=== PATIENT | female | born 1990 | race Caucasian/White ===

== ENCOUNTER 2018-04-21 18:23 | Emergency (ER) | payer MEDICAID ==
[~2018-04-21] VITALS: Ht 162.6 cm; Wt 107.1 kg
[~2018-04-21 18:23] MED LIST: DOCU-131 PO; FERR325T18 PO; IBUP-1223 PO; OXYC-302 PO
[2018-04-21 18:56] LABS: CULTURE INDICATED? YES; MICROSCOPIC INDICATED
[2018-04-21 19:18] LABS: BASOPHILS # (AUTO) 0.07 x10^3/uL (0-0.1); BASOPHILS % (AUTO) 1 % (0-1); EOSINOPHILS # (AUTO) 0.16 x10^3/uL (0-0.4); EOSINOPHILS % (AUTO) 2 % (1-7); LYMPHOCYTES # (AUTO) 1.82 x10^3/uL (1-3.4); LYMPHOCYTES % (AUTO) 24 % (22-44); MD NO; MEAN CORPUSCULAR HEMOGLOBIN 28.8 pg (27.0-34.8); MEAN CORPUSCULAR HGB CONC 33.6 g/dL (32.4-35.8); MEAN CORPUSCULAR VOLUME 85.7 fL (80-100); MEAN PLATELET VOLUME 11.3 fL (7.4-10.4); MONOCYTES # (AUTO) 0.44 x10^3/uL (0.2-0.8); MONOCYTES % (AUTO) 6 % (2-9); NEUTROPHILS # (AUTO) 5.26 x10^3/uL (1.8-6.8); NEUTROPHILS % (AUTO) 68 % (42-75); PLATELET COUNT 274 x10^3/uL (130-400); RED CELL DISTRIBUTION WIDTH 16.5 % (9.6-15.2)
[2018-04-21 19:25] LABS: ALANINE AMINOTRANSFERASE 35 U/L (12-78); ALBUMIN 3.4 g/dL (3.4-5.0); ANION GAP 8 mmol/L (5-15); CALCIUM 8.8 mg/dL (8.5-10.1); CHLORIDE 109 mmol/L (98-107); CREATININE 0.71 mg/dL (0.55-1.02)
[2018-04-21 19:30] LABS: ALKALINE PHOSPHATASE 73 U/L (45-117); BILIRUBIN,TOTAL 0.7 mg/dL (0.2-1.0); TOTAL PROTEIN 7.3 g/dL (6.4-8.2)
[2018-04-21 19:43] VITALS: BP 99/55
[2018-04-21] MEDS ORDERED: FLUCONAZOLE 100 MG TABLET PO ONE (20:00)
[2018-04-21] MEDS ORDERED: FLUCONAZOLE 100 MG TABLET ONE (20:12)
== END 2018-04-21 20:15 | disposition home or self-care (01) ==
LOC: ED 20:11
DX: N30.00 Acute cystitis without hematuria (principal); B37.9 Candidiasis, unspecified
CPT/HCPCS: 36415; 80053; 81001; 83690; 84703; 85025; 87086; 99284

== ENCOUNTER 2019-08-14 14:35 | Emergency (ER) | payer MEDICAID ==
[~2019-08-14] VITALS: Ht 170.2 cm; Wt 55.0 kg
--- NOTE | 2019-08-14 15:15 | NUR ---
ESTEVAN WAYNE DC FROM [facility] ON A LEGAL HOLD THEY REPORT PT CLAIMS SI AND UNABLE TO CARE FOR SELF CLOTHING REMOVED AND SECURED PT COOPERATIVE WITH FLIGHT OF IDEAS DENIES SI ON FIRST INTERVIEW ERP AND SW TO BS SITTER IN THE [place] WATCHING THE PT
[2019-08-14 15:56] LABS: MICROSCOPIC INDICATED
[2019-08-14 15:57] LABS: CULTURE INDICATED? YES
[2019-08-14 16:08] LABS: AMPHETAMINE SCREEN, URINE Positive (Negative); BARBITURATE SCREEN, URINE Negative (Negative); BENZODIAZEPINE SCREEN, URINE Negative (Negative); CANNABINOID SCREEN, URINE Negative (Negative); COCAINE SCREEN, URINE Negative (Negative); METHADONE SCREEN, URINE Negative (Negative); OPIATE SCREEN, URINE Negative (Negative)
[2019-08-14 16:29] LABS: BASOPHILS # (AUTO) 0.09 x10^3/uL (0-0.1); BASOPHILS % (AUTO) 1 % (0-1); EOSINOPHILS # (AUTO) 0.06 x10^3/uL (0-0.4); EOSINOPHILS % (AUTO) 1 % (1-7); LYMPHOCYTES # (AUTO) 2.11 x10^3/uL (1-3.4); LYMPHOCYTES % (AUTO) 35 % (22-44); MD NO; MEAN CORPUSCULAR HEMOGLOBIN 30.8 pg (27.0-34.8); MEAN CORPUSCULAR HGB CONC 32.9 g/dL (32.4-35.8); MEAN CORPUSCULAR VOLUME 93.8 fL (80-100); MONOCYTES # (AUTO) 0.35 x10^3/uL (0.2-0.8); MONOCYTES % (AUTO) 6 % (2-9); NEUTROPHILS # (AUTO) 3.51 x10^3/uL (1.8-6.8); NEUTROPHILS % (AUTO) 57 % (42-75); PLATELET COUNT 221 x10^3/uL (130-400); RED BLOOD COUNT 4.16 x10^6/uL (3.82-5.3); RED CELL DISTRIBUTION WIDTH 13.8 % (9.6-15.2)
[2019-08-14 16:35] LABS: ALANINE AMINOTRANSFERASE 22 U/L (12-78); ALBUMIN 3.4 g/dL (3.4-5.0); ANION GAP 6 mmol/L (5-15); CALCIUM 8.2 mg/dL (8.5-10.1); CHLORIDE 106 mmol/L (98-107)
[2019-08-14 16:36] LABS: SALICYLATE LEVEL < 1.7 mg/dL (2.8-20.0)
[2019-08-14 16:40] LABS: ALKALINE PHOSPHATASE 64 U/L (45-117); BILIRUBIN,TOTAL 0.7 mg/dL (0.2-1.0); TOTAL PROTEIN 6.9 g/dL (6.4-8.2)
[2019-08-14] MEDS ORDERED: FOSFOMYCIN 3 GM PACKET PO ONE (17:00)
--- NOTE | 2019-08-14 17:32 | NUR ---
JJ TO THE BS FOR EVAL
--- NOTE | 2019-08-14 17:35 | NUR ---
PT TO REMAIN ON A HOLD
--- NOTE | 2019-08-14 18:49 | NUR ---
Presented to [facility], waiting to see if they will accept.
--- NOTE | 2019-08-14 18:53 | NUR ---
PACKET FAXED TO [facility], [facility], [facility], AND [facility]
--- NOTE | 2019-08-14 19:50 | NUR ---
PT RESTING IN BED WATCHING TV, PT HAS SITTER AT PT DOOR, SI SECURE ROOM AND SI PRECAUTIONS ARE IN PLACE.
[2019-08-14] MEDS ORDERED: FOSFOMYCIN 3 GM PACKET ONE (20:32)
--- NOTE | 2019-08-14 23:56 | NUR ---
PT SLEEPING IN BED, PT HAS SITTER AT PT DOOR, SI SECURE ROOM AND SI PRECAUTIONS ARE IN PLACE.
--- NOTE | 2019-08-15 02:55 | NUR ---
PT SLEEPING IN BED WITH TV ON, PT HAS SITTER AT PT DOOR, SI SECURE ROOM AND SI PRECAUTIONS ARE IN PLACE. PT DENIED ANY NEEDS AT THIS TIME.
--- NOTE | 2019-08-15 03:57 | NUR ---
PT SLEEPING, PT HAS SITTER AT PT DOOR, SI SECURE ROOM AND SI PRECAUTIONS ARE IN PLACE. PT DENIED ANY NEEDS AT THIS TIME.
--- NOTE | 2019-08-15 06:01 | NUR ---
PT SLEEPING, PT HAS SITTER AT PT DOOR, SI SECURE ROOM AND SI PRECAUTIONS ARE IN PLACE. PT DENIED ANY NEEDS AT THIS TIME.
--- NOTE | 2019-08-15 06:04 | NUR ---
Accepted by Dr. Redding in [facility]
[2019-08-15 06:09] VITALS: BP 111/64
--- NOTE | 2019-08-15 06:34 | NUR ---
RN GAVE REPORT TO NATALY FRANCIS VIA PHONE.
--- NOTE | 2019-08-15 06:59 | NUR ---
REPORT RECEIVED FROM DIANE FRANCIS.
== END 2019-08-15 07:10 | disposition other institution (70) ==
LOC: ED 17:22
DX: F31.2 Bipolar disorder, current episode manic severe with psychotic features (principal); F15.250 Other stimulant dependence with stimulant-induced psychotic disorder with delusions; N30.00 Acute cystitis without hematuria; F17.200 Nicotine dependence, unspecified, uncomplicated; Z72.9 Problem related to lifestyle, unspecified; Z63.8 Other specified problems related to primary support group
CPT/HCPCS: 36415; 80053; 80307; 81001; 84703; 85025; 87077; 87086; 87186; 99284

== ENCOUNTER 2019-08-15 06:23 | Inpatient (IN) | payer MEDICAID ==
[~2019-08-15] VITALS: Ht 162.6 cm; Wt 78.4 kg
[2019-08-15] MEDS ORDERED: ACETAMINOPHEN 325 MG TABLET PO PRN (06:30)
[2019-08-15] MEDS ORDERED: POLYETHYLENE GLYCOL 17 GM PACKET PO PRN (06:30)
[2019-08-15] MEDS ORDERED: ONDANSETRON ODT 4 MG PO PRN (06:30)
[2019-08-15] MEDS ORDERED: DOCUSATE 100 MG CAPSULE PO PRN (06:30)
[2019-08-15] MEDS ORDERED: BISACODYL 10 MG SUPP PR PRN (06:30)
[2019-08-15] MEDS ORDERED: PLEASE ENTER HEIGHT AND WEIGHT MC SCH (07:30)
[2019-08-15 08:13] LABS: CULTURE INDICATED? YES; MICROSCOPIC INDICATED
[2019-08-15 08:30] VITALS: BP 105/65
[2019-08-15 09:35] LABS: BASOPHILS # (AUTO) 0.06 x10^3/uL (0-0.1); BASOPHILS % (AUTO) 1 % (0-1); EOSINOPHILS # (AUTO) 0.06 x10^3/uL (0-0.4); EOSINOPHILS % (AUTO) 1 % (1-7); LYMPHOCYTES # (AUTO) 1.76 x10^3/uL (1-3.4); LYMPHOCYTES % (AUTO) 27 % (22-44); MD NO; MEAN CORPUSCULAR HEMOGLOBIN 29.7 pg (27.0-34.8); MEAN PLATELET VOLUME 10.5 fL (7.4-10.4); MONOCYTES # (AUTO) 0.27 x10^3/uL (0.2-0.8); MONOCYTES % (AUTO) 4 % (2-9); NEUTROPHILS # (AUTO) 4.34 x10^3/uL (1.8-6.8); NEUTROPHILS % (AUTO) 67 % (42-75); PLATELET COUNT 241 x10^3/uL (130-400); RED BLOOD COUNT 4.42 x10^6/uL (3.82-5.3); RED CELL DISTRIBUTION WIDTH 13.9 % (9.6-15.2)
[2019-08-15 09:43] VITALS: BP 105/65
[2019-08-15 09:48] LABS: ALANINE AMINOTRANSFERASE 23 U/L (12-78); ALBUMIN 3.4 g/dL (3.4-5.0); ANION GAP 5 mmol/L (5-15); CALCIUM 8.5 mg/dL (8.5-10.1); CHLORIDE 108 mmol/L (98-107)
[2019-08-15 10:12] LABS: ALKALINE PHOSPHATASE 66 U/L (45-117); BILIRUBIN,TOTAL 0.5 mg/dL (0.2-1.0); CHOL/HDL RATIO 2.4; CHOLESTEROL, TOTAL 135 mg/dL (140-239); CREATININE 0.68 mg/dL (0.55-1.02); FREE T4 (FREE THYROXINE) 1.33 ng/dL (0.76-1.46); HDL CHOL % 41 % (28-40); HDL CHOLESTEROL (DIRECT) 56 mg/dL (40-60); LDL CHOLESTEROL,CALCULATED 61 mg/dL (54-169); LDL/HDL RATIO 1.1 (0.5-3.0); TRIGLYCERIDES 92 mg/dL (50-200); VLDL CHOLESTEROL 18 mg/dL (0-25)
[2019-08-15] MEDS: CARBAMAZEPINE XR 200 MG TABLET PO SCH ×2 (13:24→20:28)
[2019-08-15] MEDS: RISPERIDONE 2 MG TABLET PO SCH ×2 (13:25→20:28)
[2019-08-15 19:34] VITALS: BP 110/78
[2019-08-16] MEDS: RISPERIDONE 2 MG TABLET PO SCH ×2 (09:09→20:26)
[2019-08-16] MEDS: CARBAMAZEPINE XR 200 MG TABLET PO SCH ×2 (09:09→20:26)
[2019-08-16 19:51] VITALS: BP 104/67
[2019-08-17 07:25] VITALS: BP 110/72
[2019-08-17] MEDS ORDERED: LORazepam 1MG TABLET ONE (09:26)
[2019-08-17] MEDS: RISPERIDONE 2 MG TABLET PO SCH ×2 (09:27→20:02)
[2019-08-17] MEDS: CARBAMAZEPINE XR 200 MG TABLET PO SCH ×2 (09:27→20:02)
[2019-08-17] MEDS ORDERED: LORazepam 1MG TABLET PO ONE (09:30)
[2019-08-17 19:50] VITALS: BP 90/61
[2019-08-18 07:15] VITALS: BP 96/66
[2019-08-18] MEDS: RISPERIDONE 2 MG TABLET PO SCH ×2 (08:25→20:23)
[2019-08-18] MEDS: CARBAMAZEPINE XR 200 MG TABLET PO SCH ×3 (08:26→20:23)
[2019-08-18 19:00] VITALS: BP 104/71
[2019-08-19 07:29] VITALS: BP 92/61
[2019-08-19] MEDS: RISPERIDONE 2 MG TABLET PO SCH ×2 (08:39→21:04)
[2019-08-19] MEDS: CARBAMAZEPINE XR 200 MG TABLET PO SCH ×3 (08:40→21:04)
[2019-08-19 19:54] VITALS: BP 93/62
[2019-08-20 07:26] VITALS: BP 108/68
[2019-08-20] MEDS: CARBAMAZEPINE XR 200 MG TABLET PO SCH ×3 (08:14→20:03)
[2019-08-20] MEDS: RISPERIDONE 2 MG TABLET PO SCH ×2 (08:14→20:03)
[2019-08-20 19:22] VITALS: BP 112/71
[2019-08-21 06:59] VITALS: BP 99/64
[2019-08-21] MEDS: RISPERIDONE 2 MG TABLET PO SCH ×2 (08:26→19:59)
[2019-08-21] MEDS: CARBAMAZEPINE XR 200 MG TABLET PO SCH ×3 (08:26→19:59)
[2019-08-21] MEDS ORDERED: RISP2TAB35 PO (14:24)
[2019-08-21] MEDS ORDERED: CARB200T2 PO (14:24)
[2019-08-21 19:14] VITALS: BP 110/59
[2019-08-22] MEDS: CARBAMAZEPINE XR 200 MG TABLET PO SCH (07:39)
[2019-08-22] MEDS: RISPERIDONE 2 MG TABLET PO SCH (07:40)
[2019-08-22 07:45] VITALS: BP 93/63
== END 2019-08-22 10:05 | disposition home or self-care (01) | DRG 885 ==
LOC: 3E 07:13
PROVIDERS: ADMIT Psychiatry & Neurology Psychosomatic Medicine; ATTEND Psychiatry & Neurology Psychosomatic Medicine
DX: F25.0 Schizoaffective disorder, bipolar type (principal); R45.851 Suicidal ideations; F15.20 Other stimulant dependence, uncomplicated; F17.210 Nicotine dependence, cigarettes, uncomplicated; K59.00 Constipation, unspecified; Z59.0 Homelessness; Z88.0 Allergy status to penicillin; Z79.899 Other long term (current) drug therapy
CPT/HCPCS: 36415; 71045; 80053; 80061; 81001; 82140; 82607; 84439; 84443; 85025; 87086; 93005; Q0162

== ENCOUNTER 2019-11-07 15:58 | Emergency (ER) | payer MEDICAID ==
[~2019-11-07] VITALS: Ht 162.6 cm; Wt 69.1 kg
[~2019-11-07 15:58] MED LIST changes: +CARB200T2 PO; +RISP2TAB35 PO
[2019-11-07 16:03] VITALS: BP 113/40
--- NOTE | 2019-11-07 16:22 | NUR ---
PT STATES SHE IS HERE FOR "A TEST AND MY DIRTY FEET." PT TOLD TRIAGE BILATERAL FOOT PAIN, STATES NO PAIN NOW.
[2019-11-07 16:59] LABS: BASOPHILS # (AUTO) 0.08 x10^3/uL (0-0.1); BASOPHILS % (AUTO) 1 % (0-1); EOSINOPHILS # (AUTO) 0.35 x10^3/uL (0-0.4); EOSINOPHILS % (AUTO) 4 % (1-7); LYMPHOCYTES # (AUTO) 2.57 x10^3/uL (1-3.4); LYMPHOCYTES % (AUTO) 28 % (22-44); MD NO; MEAN CORPUSCULAR HEMOGLOBIN 29.9 pg (27.0-34.8); MEAN CORPUSCULAR HGB CONC 32.6 g/dL (32.4-35.8); MEAN CORPUSCULAR VOLUME 91.5 fL (80-100); MEAN PLATELET VOLUME 10.7 fL (7.4-10.4); MONOCYTES # (AUTO) 0.42 x10^3/uL (0.2-0.8); MONOCYTES % (AUTO) 5 % (2-9); NEUTROPHILS # (AUTO) 5.84 x10^3/uL (1.8-6.8); NEUTROPHILS % (AUTO) 63 % (42-75); PLATELET COUNT 242 x10^3/uL (130-400); RED BLOOD COUNT 4.15 x10^6/uL (3.82-5.3)
[2019-11-07 17:09] LABS: ALANINE AMINOTRANSFERASE 17 U/L (12-78); ALBUMIN 3.1 g/dL (3.4-5.0); ANION GAP 6 mmol/L (5-15); CALCIUM 7.9 mg/dL (8.5-10.1); CHLORIDE 108 mmol/L (98-107); CREATININE 0.61 mg/dL (0.55-1.02); SALICYLATE LEVEL 2.2 mg/dL (2.8-20.0)
[2019-11-07 17:14] LABS: ALKALINE PHOSPHATASE 79 U/L (45-117); BILIRUBIN,TOTAL 0.2 mg/dL (0.2-1.0); TOTAL PROTEIN 6.3 g/dL (6.4-8.2)
--- NOTE | 2019-11-07 17:55 | NUR ---
WASTE HAND AT BEDSIDE FOR EVAL, OK TO DC.
--- NOTE | 2019-11-07 18:07 | NUR ---
Patient/Caregiver given discharge instructions and they have confirmed that they understand the instructions. Patient ambulatory with steady gait.
[2019-11-07 18:14] LABS: AMPHETAMINE SCREEN, URINE Positive (Negative); BARBITURATE SCREEN, URINE Negative (Negative); BENZODIAZEPINE SCREEN, URINE Negative (Negative); CANNABINOID SCREEN, URINE Negative (Negative); COCAINE SCREEN, URINE Negative (Negative); METHADONE SCREEN, URINE Negative (Negative); OPIATE SCREEN, URINE Negative (Negative)
== END 2019-11-07 18:09 | disposition home or self-care (01) ==
LOC: ED 16:55
DX: F25.0 Schizoaffective disorder, bipolar type (principal); Z72.9 Problem related to lifestyle, unspecified
CPT/HCPCS: 36415; 80053; 80307; 84703; 85025; 99283

== ENCOUNTER 2021-02-26 19:43 | Emergency (ER) | payer MEDICAID ==
[~2021-02-26] VITALS: Ht 162.6 cm; Wt 70.0 kg
[~2021-02-26 19:43] MED LIST changes: -OXYC-302 PO; +OXYC1TAB14 PO
--- NOTE | 2021-02-26 20:02 | NUR ---
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
[2021-02-26 20:11] VITALS: BP 125/74
--- NOTE | 2021-02-26 22:17 | NUR ---
NIL X 2
--- NOTE | 2021-02-26 22:17 | NUR ---
NIL X 1
--- NOTE | 2021-02-26 22:30 | NUR ---
NIL X 3
== END 2021-02-26 22:32 | disposition left against medical advice (07) ==
LOC: ED 19:50
DX: M79.641 Pain in right hand (principal); M79.642 Pain in left hand; Z53.21 Procedure and treatment not carried out due to patient leaving prior to being seen by health care provider